=== PATIENT | male | born 1975 | race Caucasian/White ===

== ENCOUNTER 2018-07-12 19:28 | Emergency (ER) | payer BC ==
[2018-07-12] MEDS ORDERED: NS 1,000 ML IV ONE (20:57)
[2018-07-12 21:02] LABS: PLATELET COUNT 184 10^3/uL (150-400)
--- NOTE | 2018-07-12 21:02 | EDPHY ---
H & P Time Seen by Provider: 07/12/18 20:04 HPI/ROS: HPI Headache, lightheaded while exercising. 42-year-old male by private vehicle with his . This patient was doing a cycling fitness test. He reports that at the end of this test with maybe 5 min remaining during the most intense part of exercising during the test she developed a sudden onset frontal and temporal headache. He describes this as more coming on and then ramping up in intensity quickly rather than a thunderclap headache. He reports that the headache resolved once he got off the bike and relaxed. He reports though that after getting off the bike he felt unusually lightheaded and mildly nauseous. He has had no associated chest pain or palpitations. No loss of sensation or weakness in his extremities. He is denying any complaints at this time and reports that his symptoms have completely resolved. He reports he has had symptoms similar to this in the past but to a lesser extent and much more gradual in onset. He does state that he has been under a lot of stress lately with his professional and personal life. ROS: Constitutional: No fever, no chills. As above. Eyes: No discharge. No changes in vision. ENT: No sore throat. No nasal congestion or rhinorrhea. Respiratory: No cough. No shortness of breath. Cardiac: No chest pain, no palpitations. Gastrointestinal: No abdominal pain, no vomiting, no diarrhea. Genitourinary: No hematuria. No dysuria or increased frequency with urination. Musculoskeletal: No back pain. No neck pain. No myalgias or arthralgias. Skin: No rashes. Neurological: As above. No focal weakness or altered sensation. Past medical history: Hypertension. Social history: Nonsmoker. Very physically active. Here with his . Physical Exam: General Appearance: Alert, no distress. This patient is responding to questions appropriately and in full sentences. This patient appears well- hydrated and well-nourished. Eyes: Pupils equal and round and reactive to light at 3-2 mm bilaterally, no pallor or injection. No lid edema, erythema or injection. Respiratory: There are no retractions, lungs are clear to auscultation with good air movement bilaterally. Cardiovascular: Regular rate and rhythm. No murmur. Gastrointestinal: Abdomen is soft and nontender, no masses, bowel sounds normal. No focal tenderness at McBurney's point. No Ortiz sign. Neurological: Motor sensory function is grossly intact. Cranial nerves are normal. Gait is normal. Skin: Warm and dry, no rashes. Musculoskeletal: Neck is supple and nontender. Extremities are symmetrical. All joints range without pain or impingement. Psychiatric: No agitation. No depression. Database: EKG: EKG time is 9:06 p.m.; EKG shows a narrow complex normal sinus rhythm with a ventricular rate of 57. Left ventricular hypertrophy noted. The UT, QRS, QT intervals are within normal limits. There are no ST-T wave changes indicative of ischemic or injury pattern. No evidence of right heart strain. Interpreted by me. Imaging: CT head without contrast: Negative. Results were discussed with staff radiologist Dr. Kane Liang. Procedures: Emergency department course: Triage vital signs reviewed. He is moderately hypertensive but otherwise vital signs are normal. He is afebrile. No significant findings on his neurologic Assessment. EKG obtained and reviewed by myself. CT head will be obtained. He endorses workup. 10:05 p.m., the patient was re-evaluated, he remains asymptomatic. He has no complaints at this time. Repeat neurologic Assessment is nonfocal. I discussed the results of his emergency department workup with him. He feels comfortable going home at this time and he is requesting discharge. His will return to the emergency department to pick him up. I review asked him to follow up with his primary care physician in the next 1-2 days for re- evaluation and to be cleared by his primary care physician before engaging in strenuous physical exercise. He agrees with this. Return to emergency department precautions were reviewed with him. All of his questions were answered. He was discharged from the emergency department in good condition. Differential Diagnosis: The differential diagnosis on this patient includes but is not limited to hypoglycemia, dehydration. Subarachnoid hemorrhage, arrhythmia unlikely. This represents a partial list of diagnoses considered. These considerations are based on history, physical exam, past history, reassessment and diagnostic testing. Smoking Status: Never smoked Constitutional: Initial Vital Signs Temperature (C) 36.7 C 07/12/18 19:30 Heart Rate 73 07/12/18 19:30 Respiratory Rate 18 07/12/18 19:30 Blood Pressure 145/112 H 07/12/18 19:30 O2 Sat (%) 97 07/12/18 19:30 O2 Delivery Mode Room Air Allergies/Adverse Reactions: No Known Allergies Allergy (Verified 07/12/18 19:33) Home Medications: Medication Instructions Recorded PARoxetine HCL 07/12/18 Medical Decision Making - Data Points Laboratory Results: Laboratory Results 07/12/18 20:15 07/12/18 20:15 Medications Given: Discontinued Medications Sodium Chloride (Ns) 1,000 mls @ 0 mls/hr IV ONCE ONE; Wide Open PRN Reason: Protocol Stop: 07/12/18 20:58 Last Admin: 07/12/18 21:03 Dose: 1,000 mls Departure - Departure Disposition: Home, Routine, Self-Care Clinical Impression: Headache, Lightheaded, Elevated blood pressure reading Condition: Good Instructions: Acute Headache (ED), Lightheadedness (ED) Additional Instructions: Read and follow provided instructions. Follow-up with your primary care physician in 1-2 days for re-evaluation as discussed. I want your primary care physician to clear you to engage in continued strenuous physical exercise. Your blood pressure was elevated in the emergency department and this should be evaluated by your primary care physician as well. Stay well hydrated. Return to the emergency department for return of symptoms, return of headache, lightheadedness, palpitations or other serious concerns. Referrals: Josef Saba [Primary Care Provider] - As per Instructions
[2018-07-12 22:23] VITALS: BP 151/104
== END 2018-07-12 22:23 | disposition home or self-care (01) ==
DX: R51 Headache (principal); R42 Dizziness and giddiness; R03.0 Elevated blood-pressure reading, without diagnosis of hypertension; E86.9 Volume depletion, unspecified